=== PATIENT | female | born 1945 | race Caucasian/White ===

== ENCOUNTER → 2016-07-16 | Outpatient (CLI) | payer OTHER ==
[~2016-07-16] MED LIST: [UNRECOGNIZED DRUG - REMARK]; [UNRECOGNIZED DRUG - REMARK]
--- NOTE | 2016-07-16 08:36 | DIAGNOSTIC IMAGING REPORT ---
CHEST CT WITHOUT CONTRAST CT DOSE: 329.47 mGy.cm HISTORY: ABNORMAL CT LUNG F/U TECHNIQUE: Multiaxial CT images of the chest were performed without contrast. COMPARISON: 03/28/2016 FINDINGS: Slight increase in density and definition of a multi locular nodular density medial aspect right apex. Current maximum dimension 1.3 cm essentially unchanged from the prior study. Mild bibasilar interstitial and/or nodular-type changes medial cardiophrenic angles both lung bases are stable. Lungs otherwise appear clear. IMPRESSION: Slight increase in density of a multinodular density right medial pulmonary apex. 2. No change in bibasilar poorly defined parenchymal nodules and/or atelectatic change at both lung bases. 3. PET/CT fusion scan suggested as follow-up. Electronically signed by: Ethan Lopez M.D. 07/16/2016 8:34 AM Dictated Date/Time: 07/16/2016 8:21 AM
== END | disposition home or self-care (01) ==
LOC: C.CTS 08:06
PROVIDERS: ATTEND Family Medicine
DX: R91.8 Other nonspecific abnormal finding of lung field (principal)

== ENCOUNTER → 2017-04-11 | Outpatient (CLI) | payer OTHER ==
--- NOTE | 2017-04-11 14:38 | MAMMOGRAPHY REPORT ---
BILATERAL DIGITAL SCREENING MAMMOGRAM TOMOSYNTHESIS WITH CAD: 04/11/2017 CLINICAL HISTORY: Routine screening. Patient has no complaints. TECHNIQUE: Breast tomosynthesis in addition to standard 2D mammography was performed. Current study was also evaluated with a Computer Aided Detection (CAD) system. COMPARISON: Comparison is made to exams dated: 06/20/2015 mammogram, 04/28/2014 mammogram, 12/26/2012 m ammogram, 12/24/2011 mammogram, 07/17/2010 mammogram, and 08/02/2009 mammogram - [facility] nter. BREAST COMPOSITION: The tissue of both breasts is heterogeneously dense, which may obscure small mas ses. FINDINGS: No suspicious masses, calcifications, or areas of architectural distortion are noted in ei ther breast. There has been no significant interval change compared to prior exams. IMPRESSION: ACR BI-RADS CATEGORY 1: NEGATIVE There is no mammographic evidence of malignancy. A 1 year screening mammogram is recommended. The pa tient will receive written notification of the results. Approximately 10% of breast cancers are not detected with mammography. A negative mammographic report should not delay biopsy if a clinically suggestive mass is present. Cindy Martinez M.D. ah/:04/11/2017 12:09:41 Netsuite Developer: Carolynn KINCAID(R)(M), [facility] letter sent: Normal 1/2 BI-RADS Code: ACR BI-RADS Category 1: Negative
== END | disposition home or self-care (01) ==
LOC: C.MAMM 10:53
PROVIDERS: ATTEND Family Medicine
DX: Z12.31 Encounter for screening mammogram for malignant neoplasm of breast (principal)